=== PATIENT | female | born 1960 | race Caucasian/White ===

== ENCOUNTER 2016-11-17 19:48 | Emergency (ER) | payer MEDICAID, OTHER ==
[~2016-11-17] VITALS: Ht 162.6 cm; Wt 72.7 kg
[~2016-11-17 19:48] MED LIST: BUPR-173 PO; FLUO20CA19 PO; METO50TA4 PO
[2016-11-17] MEDS ORDERED: LORazepam 1MG TABLET ONE (20:28)
[2016-11-17] MEDS ORDERED: LORazepam 1MG TABLET PO ONE (20:30)
[2016-11-17] MEDS ORDERED: ONDANSETRON ODT 4 MG ONE (21:48)
[2016-11-17] MEDS ORDERED: ONDANSETRON ODT 4 MG PO ONE (22:00)
[2016-11-17 22:05] LABS: ASPARTATE AMINO TRANSFERASE 68 U/L (15-37); BLOOD UREA NITROGEN 20 mg/dL (7-18)
[2016-11-17 22:08] LABS: ACETAMINOPHEN < 2 mcg/mL (10-30)
[2016-11-17 22:26] LABS: DAU SCREEN DISCLAIMER
[2016-11-17 23:05] VITALS: BP 117/79
== END 2016-11-17 23:07 | disposition home or self-care (01) ==
LOC: ED 23:01
DX: F33.9 Major depressive disorder, recurrent, unspecified (principal); I12.9 Hypertensive chronic kidney disease with stage 1 through stage 4 chronic kidney disease, or unspecified chronic kidney disease; N18.9 Chronic kidney disease, unspecified; F41.9 Anxiety disorder, unspecified; F15.10 Other stimulant abuse, uncomplicated; I25.2 Old myocardial infarction; F17.200 Nicotine dependence, unspecified, uncomplicated
CPT/HCPCS: 36415; 71010; 80053; 80307; 80329; 85025; 93005; 99285; Q0162; G0480

== ENCOUNTER 2018-02-13 11:42 | Emergency (ER) | payer MEDICAID, OTHER ==
[~2018-02-13] VITALS: Ht 162.6 cm; Wt 71.2 kg
[2018-02-13 11:47] VITALS: BP 115/81
== END 2018-02-13 12:33 | disposition home or self-care (01) ==
LOC: ED 12:24
DX: M72.2 Plantar fascial fibromatosis (principal); Z90.49 Acquired absence of other specified parts of digestive tract; I10 Essential (primary) hypertension; I25.2 Old myocardial infarction; G43.909 Migraine, unspecified, not intractable, without status migrainosus; F32.9 Major depressive disorder, single episode, unspecified
CPT/HCPCS: 99282